=== PATIENT | female | born 1970 | race Hispanic/Latino ===

== ENCOUNTER 2017-08-30 06:43 | Outpatient (CLI) | payer BC | END 2017-08-30 06:44 | disposition home or self-care (01) | LOC: BICMRI 06:43 | PROVIDERS: ATTEND Family Medicine | DX: M25.562 Pain in left knee (principal); M71.22 Synovial cyst of popliteal space [Baker], left knee; M71.562 Other bursitis, not elsewhere classified, left knee ==

== ENCOUNTER 2017-11-12 12:35 | Outpatient (CLI) | payer BC ==
--- NOTE | 2017-11-12 13:47 | ULT ---
ULTRASOUND VENOUS DOPPLER LEFT LOWER EXTREMITY: History: Knee pain. Edema. Comparison: None. Technique: Real-time grayscale, color, and spectral analysis of the left lower extremity venous syste m was performed with a linear transducer. Common femoral, femoral, and proximal portions of the great er saphenous and deep femoral veins as well as the popliteal and posterior tibial veins were interrog ated. FINDINGS: Normal flow, augmentation, and compression. Popliteal cyst is present. IMPRESSION: No deep venous thrombosis. POS: NAHEED
== END 2017-11-12 12:36 | disposition home or self-care (01) ==
LOC: ULT 12:35
PROVIDERS: ATTEND Emergency Medicine
DX: M79.89 Other specified soft tissue disorders (principal)